=== PATIENT | male | born 1960 | race Caucasian/White ===

== ENCOUNTER 2017-03-14 15:32 | Emergency (ER) | payer MEDICARE ==
[2017-03-14 16:08] LABS: #Basophils 0.1 thou/uL (0.0-0.2); #Eosinphils 0.2 thou/uL (0.0-0.7); #Lymphocytes 1.8 thou/uL (1.20-3.40); #Monocytes 1.1 thou/uL (0.11-0.59); #Neutrophils 15.2 thou/uL (1.40-6.50); %Basophils 0.6 % (0.0-1.0); %Lymphocytes 9.6 % (21.0-51.0); Hematocrit 42.4 % (42.0-52.0); Mean Platelet Volume 7.5 fL (7.4-10.4); Red Blood Cell (RBC) Count 4.17 mill/uL (4.70-6.10); White Blood Cell (WBC) Count 18.3 thou/uL (4.8-10.8)
[2017-03-14 16:31] LABS: ALT (SGPT) 23 U/L (8-55); AST (SGOT) 29 U/L (5-34); Acetaminophen Less than 6.0 mcg/mL (10.0-30.0); Alkaline Phosphatase 60 U/L (40-150); Anion Gap 14 mmol/L (10-20); BUN (Urea Nitrogen) 17 mg/dL (8.4-25.7); Bilirubin, Total 0.3 mg/dL (0.2-1.2); CK (CPK) 553 U/L (30-200); Calc. Creatinine Clearance 0 mL/min (70-130); Calcium 9.5 mg/dL (7.8-10.44); Carbon Dioxide 19 mmol/L (22-29); Chloride 112 mmol/L (98-107); Estimated GFR-MDRD 88; Globulin 3.6 g/dL (2.4-3.5); Protein, Total 7.7 g/dL (6.0-8.3); Salicylate Less than 8.0 mg/dL (15.0-30.0)
[2017-03-14] MEDS ORDERED: traZODone HCl 50 MG TAB ONE (16:40)
[2017-03-14] MEDS ORDERED: Lorazepam 1 MG TAB ONE ×2 (16:40→23:39)
[2017-03-14] MEDS ORDERED: Lithium Carbonate 150 MG CAP PO SCH (16:45)
[2017-03-14] MEDS ORDERED: Nicotine 21 MG PATCH TOP SCH (16:45)
[2017-03-14 17:35] LABS: Bilirubin Negative (Negative); Blood, Urine Negative (Negative); Glucose, Urine (Dipstick) Negative (Negative); Ketone, Urine Negative (Negative); Nitrite Negative (Negative); Protein, Urine (Dipstick) Negative (Neg-Trace); Urobilinogen 0.2 mg/dL (0.2-1.0)
[2017-03-14 17:44] LABS: Amphetamine Not Detected (NotDetected); Methadone Not Detected (NotDetected); Methamphetamine Not Detected (NotDetected)
[2017-03-14 21:12] LABS: #Basophils 0.1 thou/uL (0.0-0.2); #Eosinphils 0.2 thou/uL (0.0-0.7); #Lymphocytes 3.4 thou/uL (1.20-3.40); #Neutrophils 13.5 thou/uL (1.40-6.50); %Basophils 0.6 % (0.0-1.0); %Lymphocytes 18.6 % (21.0-51.0); %Monocytes 5.3 % (0.0-10.0); Hematocrit 42.2 % (42.0-52.0); Mean Platelet Volume 7.2 fL (7.4-10.4); Red Blood Cell (RBC) Count 4.16 mill/uL (4.70-6.10); White Blood Cell (WBC) Count 18.1 thou/uL (4.8-10.8)
[2017-03-15] MEDS ORDERED: Lorazepam 1 MG TAB ONE ×2 (04:23→18:48)
[2017-03-15] MEDS ORDERED: Haloperidol Lactate 5 MG/ML VIAL ONE ×2 (06:33→19:52)
[2017-03-15 11:51] LABS: #Basophils 0.1 thou/uL (0.0-0.2); #Eosinphils 0.2 thou/uL (0.0-0.7); #Lymphocytes 1.8 thou/uL (1.20-3.40); #Monocytes 0.7 thou/uL (0.11-0.59); #Neutrophils 8.4 thou/uL (1.40-6.50); %Basophils 0.5 % (0.0-1.0); %Eosinophils 1.9 % (0.0-10.0); %Lymphocytes 16.1 % (21.0-51.0); %Monocytes 5.9 % (0.0-10.0); Hematocrit 41.5 % (42.0-52.0); Mean Platelet Volume 7.7 fL (7.4-10.4); Red Blood Cell (RBC) Count 4.04 mill/uL (4.70-6.10); White Blood Cell (WBC) Count 11.1 thou/uL (4.8-10.8)
[2017-03-15] MEDS ORDERED: Lorazepam 1 MG TAB PO PRN (19:43)
[2017-03-15] MEDS ORDERED: Nicotine 21 MG PATCH TOP SCH (19:45)
[2017-03-15] MEDS ORDERED: traZODone HCl 50 MG TAB PO SCH (20:00)
[2017-03-15] MEDS ORDERED: Haloperidol Lactate 5 MG/ML VIAL IM SCH (20:00)
[2017-03-15] MEDS ORDERED: Lithium Carbonate 150 MG CAP PO SCH ×2 (20:00→21:00)
--- NOTE | 2017-03-26 15:01 | EKG ---
Test Reason : ER INDICATION Blood Pressure : / mmHG Vent. Rate : 077 BPM Atrial Rate : 077 BPM P-R Int : 164 ms QRS Dur : 096 ms QT Int : 404 ms P-R-T Axes : 034 -09 009 degrees QTc Int : 457 ms Normal sinus rhythm Normal ECG Confirmed by KIANA TESFAYE D.O. ([id number]), editorial clerk MARTIN BUCIO ([id number] on 03/26/2017 3:01:11 PM Referred By: Confirmed By:KIANA TESFAYE D.O.
== END 2017-03-15 21:00 ==
LOC: ERS 15:32
DX: R45.850 Homicidal ideations (principal); F31.9 Bipolar disorder, unspecified; F41.9 Anxiety disorder, unspecified; F17.210 Nicotine dependence, cigarettes, uncomplicated; Z79.899 Other long term (current) drug therapy
CPT/HCPCS: 36415; 80053; 80178; 80306; 80307; 81003; 82550; 84443; 85025; 93005; 96360; 96372; J1630

== ENCOUNTER 2018-02-28 15:31 | Outpatient (CLI) | payer MEDICARE ==
--- NOTE | 2018-02-28 19:33 | MRI ---
NONCONTRAST ENHANCED MRI IMAGES CERVICAL SPINE 02/28/18 HISTORY: Neck pain for several years. Multiplanar and multisequence noncontrast enhanced MRI images cervical spine obtained. Images demonstrate the spinal cord to be unremarkable with no evidence of masses or lesions seen. The vertebral bodies are unremarkable with no significant abnormality seen. C1-2, C2-3: Unremarkable. C3-4: Unremarkable. C4-5: there is some moderate to severe right C4-5 neural foraminal narrowing due to uncovertebral ost eophyte hypertrophy. The left neural foramen is patent. C5-6: There is a broad based disc osteophyte complex centrally compressing the thecal sac resulting i n mild right C5-6 paracentral and lateral recess stenosis. There is moderate right and minimal left s ided C5-6 neural foraminal narrowing due to uncovertebral osteophyte hypertrophy. C6-7 and C7-T1: Unremarkable. IMPRESSION: 1. Right C4-5 and right C5-6 neural foraminal narrowing. 2. Right C5-6 lateral recess broad based disc protrusion. POS: [facility]
== END 2018-02-28 15:32 | disposition home or self-care (01) ==
LOC: TBSIIMAG 15:31
PROVIDERS: ATTEND Family Medicine
DX: M48.02 Spinal stenosis, cervical region (principal); M99.81 Other biomechanical lesions of cervical region; M50.222 Other cervical disc displacement at C5-C6 level
CPT/HCPCS: 72141

== ENCOUNTER 2018-06-30 15:57 | Emergency (ER) | payer MEDICARE ==
--- NOTE | 2018-06-30 17:11 | RAD ---
FOUR VIEW RIGHT KNEE SERIES 06/30/18 INDICATION: Fall with injury and pain. FINDINGS: There is a transversely oriented fracture of the patella, mid portion. Overlying soft tissue prominen ce is present. No significant joint capsular distention. IMPRESSION: Mildly displaced patellar fracture. POS: [facility]
== END 2018-06-30 18:23 | disposition home or self-care (01) ==
LOC: ERS 15:57
DX: S82.001A Unspecified fracture of right patella, initial encounter for closed fracture (principal); F41.9 Anxiety disorder, unspecified; F31.9 Bipolar disorder, unspecified; F17.210 Nicotine dependence, cigarettes, uncomplicated; W01.0XXA Fall on same level from slipping, tripping and stumbling without subsequent striking against object, initial encounter; Y93.01 Activity, walking, marching and hiking; Y92.239 Unspecified place in hospital as the place of occurrence of the external cause

== ENCOUNTER → 2018-09-13 | Emergency (ER) | payer MEDICARE ==
[~2018-09-13] MED LIST: Acetaminophen 325 MG TAB ONE; Haloperidol Lactate 5 MG/ML VIAL ONE; Lithium Carbonate 150 MG CAP PO SCH; Ziprasidone 20 MG CAP ONE; hydrOXYzine Pamoate 25 mg Capsule ONE
[2018-09-13 22:59] LABS: #Basophils 0.2 thou/uL (0.0-0.2); #Eosinphils 0.4 thou/uL (0.0-0.7); #Lymphocytes 3.2 thou/uL (1.20-3.40); #Monocytes 0.8 thou/uL (0.11-0.59); #Neutrophils 9.5 thou/uL (1.40-6.50); %Basophils 1.4 % (0.0-1.0); %Eosinophils 2.6 % (0.0-10.0); %Lymphocytes 22.8 % (21.0-51.0); %Monocytes 5.6 % (0.0-10.0); %Neutrophils 67.5 % (42.0-75.0); Hemoglobin 15.2 g/dL (14.0-18.0); Mean Corpuscular HGB CONC 31.4 g/dL (32.0-36.0); Mean Corpuscular Hemoglobin 30.5 pg (27.0-31.0); Mean Corpuscular Volume 96.9 fL (78.0-98.0); Mean Platelet Volume 7.4 fL (7.4-10.4); Platelet Count 285 thou/uL (130-400); RBC Distribution Width 13.4 % (11.5-14.5); Red Blood Cell (RBC) Count 4.98 mill/uL (4.70-6.10); White Blood Cell (WBC) Count 14.1 thou/uL (4.8-10.8)
[2018-09-13 23:18] LABS: Acetaminophen Less than 6.0 mcg/mL (10.0-30.0); Alcohol Less than 10 mg/dL (Less than 10); Anion Gap 14 mmol/L (10-20); BUN (Urea Nitrogen) 15 mg/dL (8.4-25.7); CK (CPK) 177 U/L (30-200); Calc. Creatinine Clearance 0 mL/min (70-130); Carbon Dioxide 21 mmol/L (22-29); Chloride 106 mmol/L (98-107); Estimated GFR-MDRD 80; Glucose 91 mg/dL (70-105); Potassium 4.2 mmol/L (3.5-5.1); Salicylate Less than 8.0 mg/dL (15.0-30.0); Sodium 137 mmol/L (136-145)
[2018-09-13 23:59] LABS: Amphetamine Not Detected (NotDetected); Barbiturates Screen Not Detected (NotDetected); Benzodiazepine Screen Not Detected (NotDetected); Cocaine Metabolite Screen Not Detected (NotDetected); Medtox Control Line Valid? VALID (VALID); Medtox Reader # READER 4; Methadone Not Detected (NotDetected); Methamphetamine Not Detected (NotDetected); Opiate Screen Detected (NotDetected); Oxycodone Screen Not Detected (NotDetected); Phencyclidine (PCP) Not Detected (NotDetected); THC/Cannabinoid Screen Not Detected (NotDetected); Tricyclic Screen Not Detected (NotDetected)
--- NOTE | 2018-09-14 07:52 | RAD ---
FExam: Chest one view HISTORY:Short of breath Comparison: None FINDINGS: Lungs: Perihilar interstitial opacities patchy left perihilar opacity is present. Cardiac silhouette:Normal in size Pulmonary vessels: Engorged, more so on the left Pleural Spaces: Clear Pneumothorax: None Osseous abnormalities: None IMPRESSION: Left greater than right, asymmetric perihilar opacities which may be on the basis of osmany a and/or perihilar pneumonia. Follow-up to resolution is recommended.
[2018-09-14 10:38] LABS: #Basophils 0.1 thou/uL (0.0-0.2); #Eosinphils 0.3 thou/uL (0.0-0.7); #Lymphocytes 1.6 thou/uL (1.20-3.40); #Monocytes 0.7 thou/uL (0.11-0.59); %Basophils 0.9 % (0.0-1.0); %Eosinophils 2.9 % (0.0-10.0); %Lymphocytes 16.8 % (21.0-51.0); %Monocytes 7.2 % (0.0-10.0); %Neutrophils 72.1 % (42.0-75.0); Hemoglobin 14.8 g/dL (14.0-18.0); Mean Corpuscular HGB CONC 32.2 g/dL (32.0-36.0); Mean Corpuscular Hemoglobin 31.5 pg (27.0-31.0); Mean Platelet Volume 7.5 fL (7.4-10.4); Platelet Count 265 thou/uL (130-400); RBC Distribution Width 13.5 % (11.5-14.5); Red Blood Cell (RBC) Count 4.69 mill/uL (4.70-6.10); White Blood Cell (WBC) Count 9.7 thou/uL (4.8-10.8)
[2018-09-14 14:03] LABS: Bilirubin Negative (Negative); Blood, Urine Negative (Negative); Clarity CLEAR (Clear); Glucose, Urine (Dipstick) Negative (Negative); Leukocyte Negative (Negative); Nitrite Negative (Negative); Protein, Urine (Dipstick) Negative (Neg-Trace); Specific Gravity, Urine 1.006 (1.002-1.036); Urobilinogen 0.2 mg/dL (0.2-1.0)
--- NOTE | 2018-09-14 14:29 | CT ---
CT OF THE BRAIN WITHOUT CONTRAST: Date: 09/14/18 COMPARISON: 06/25/16. HISTORY: Suicidal ideation, depression, and agitation. TECHNIQUE: Multiple contiguous axial images were obtained in a CT of the brain without contrast. FINDINGS: The brain is normal in morphology and attenuation without focal lesions or confluent areas of infarct ion. There is no evidence of hydrocephalus, intracranial hemorrhage, or extra-axial fluid collection. The calvarium and overlying soft tissues are unremarkable. Mucosal thickening is seen in the maxillar y sinuses. The mastoid air cells are well aerated. IMPRESSION: No evidence of acute intracranial abnormality. POS: [facility]
--- NOTE | 2018-09-14 14:34 | CT ---
CT OF THE CERVICAL SPINE WITHOUT CONTRAST: Date 09/14/18 HISTORY: Suicidal ideation with depression and agitation. Trauma with neck pain. TECHNIQUE: Multiple contiguous axial images were obtained in a CT of the cervical spine without contrast. Sagitt al and coronal reformats were performed. FINDINGS: The vertebral bodies and intervertebral discs demonstrate normal height and alignment without fractur e or subluxation. No prevertebral soft tissue swelling is seen. The posterior facets are well aligned. Normal alignment of the skull base with the cervical spine is seen. Emphysematous changes are seen in the lung apices. IMPRESSION: No evidence of acute osseous abnormality of the cervical spine. POS: [facility]
== END ==
LOC: ERS 22:00
DX: R45.851 Suicidal ideations (principal); F31.9 Bipolar disorder, unspecified; F17.210 Nicotine dependence, cigarettes, uncomplicated; Z79.1 Long term (current) use of non-steroidal anti-inflammatories (NSAID); Z79.899 Other long term (current) drug therapy
CPT/HCPCS: 36415; 70450; 71045; 72125; 80048; 80306; 80307; 81003; 82550; 84443; 85025; 93005; 96360; 96361; 96372; J1630; Q0177